=== PATIENT | male | born 1995 ===

== ENCOUNTER 2022-05-02 01:24 | Emergency (ER) | payer BC ==
[2022-05-02] MEDS ORDERED: HYDROmorphone 1 MG/ML Syringe IM ONE (03:35)
[2022-05-02] MEDS ORDERED: Orphenadrine 100 MG Tab.ER PO STA (03:35)
== END 2022-05-02 04:47 | disposition left against medical advice (07) ==
LOC: JD.ED 01:24
DX: S39.012A Strain of muscle, fascia and tendon of lower back, initial encounter (principal); E66.9 Obesity, unspecified; Z68.37 Body mass index [BMI] 37.0-37.9, adult; X58.XXXA Exposure to other specified factors, initial encounter
CPT/HCPCS: 96372; 99283; A9270; J1170; 99282